=== PATIENT | female | born 1970 | race Caucasian/White ===

== ENCOUNTER → 2023-02-19 | Outpatient (CLI) | payer BC | LOC: RAD 15:30 | PROVIDERS: ATTEND Internal Medicine | DX: S46.002A Unspecified injury of muscle(s) and tendon(s) of the rotator cuff of left shoulder, initial encounter (principal) ==

== ENCOUNTER → 2023-02-21 | Outpatient (CLI) | payer BC | LOC: RAD 08:35 | PROVIDERS: ATTEND Internal Medicine | DX: J98.6 Disorders of diaphragm (principal) | CPT/HCPCS: 71046 ==

== ENCOUNTER → 2025-03-04 | Outpatient (REF) | payer BC | LOC: US 12:37 | PROVIDERS: ATTEND Internal Medicine | DX: E05.90 Thyrotoxicosis, unspecified without thyrotoxic crisis or storm (principal) | CPT/HCPCS: 76536 ==

== ENCOUNTER → 2025-04-06 | Outpatient (REF) | payer BC | LOC: US 08:09 | PROVIDERS: ATTEND Internal Medicine | DX: E04.1 Nontoxic single thyroid nodule (principal) | CPT/HCPCS: 10005; 10006; 88172; 88173; 88305 ==